=== PATIENT | female | born 2005 | race Caucasian/White ===

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

== ENCOUNTER → 2025-02-07 | Outpatient (CLI) | payer OTHER ==
[2025-02-07 11:14] LABS: BASOPHILS ABSOLUTE AUTO 0.05 K/mm3 (0.00-0.23); BASOPHILS PERCENT AUTO 1 % (0-2); EOSINOPHILS ABSOLUTE AUTO 0.24 K/mm3 (0.00-0.68); EOSINOPHILS PERCENT AUTO 2 % (0-6); Hematocrit 39.4 % (33.0-51.0); Hemoglobin 12.8 g/dL (11.5-16.0); IMMATURE GRAN ABSOLUTE AUTO 0.05 K/mm3 (0.00-0.10); IMMATURE GRAN PERCENT AUTO 1 % (0-1); LYMPHOCYTES ABSOLUTE AUTO 1.89 K/mm3 (0.84-5.20); LYMPHOCYTES PERCENT AUTO 18 % (21-46); MONOCYTES ABSOLUTE AUTO 0.67 K/mm3 (0.16-1.47); MONOCYTES PERCENT AUTO 6 % (4-13); Mean Corpuscular HGB Conc 32.5 g/dL (31.5-36.5); Mean Corpuscular Volume 89 fL (80-100); NEUTROPHILS ABSOLUTE AUTO 7.64 K/mm3 (1.96-9.15); NEUTROPHILS PERCENT AUTO 72 % (41-73); NRBC ABSOLUTE 0.00 K/mm3 (0.00-0.02); NRBC Auto 0.0 /100 WBC (0.0-0.2); Platelet Count 286 K/mm3 (150-400); RDW Coefficient Variation 13.0 % (11.7-14.2); RDW Standard Deviation 42.5 fL (35.1-46.3)
[2025-02-07 12:09] LABS: Anion Gap 9.0 mmol/L (3-11); Blood Urea Nitrogen 11.0 mg/dL (8-21); CO2, Blood 28.0 mmol/L (21-32); Calcium, Blood 9.0 mg/dL (8.5-10.1); Chloride, Blood 103.0 mmol/L (98-108); Creatinine, Blood 1.0 mg/dL (0.40-1.00); Glucose, Blood 96.0 mg/dL (70-99); Potassium, Blood 3.9 mmol/L (3.5-5.5); Sodium, Blood 136.0 mmol/L (136-145)
== END ==
LOC: LAB SHORT 11:07 → LAB 11:07
PROVIDERS: Physician Assistant Medical
DX: R93.89 Abnormal findings on diagnostic imaging of other specified body structures (principal)
CPT/HCPCS: 80048; 85025; 85379